=== PATIENT | female | born 1990 | race Caucasian/White ===

== ENCOUNTER 2016-06-29 10:46 | Emergency (ER) | payer OTHER ==
[~2016-06-29] VITALS: Ht 180.3 cm; Wt 75.5 kg
[2016-06-29] MEDS ORDERED: INDOCIN50 MG PO (12:46)
[2016-06-29] MEDS ORDERED: VALIUM5 MG PO (12:46)
[2016-06-29 13:30] VITALS: BP 118/71
== END 2016-06-29 13:31 | disposition home or self-care (01) ==
LOC: EME 10:46
DX: S16.1XXA Strain of muscle, fascia and tendon at neck level, initial encounter (principal); S29.012A Strain of muscle and tendon of back wall of thorax, initial encounter; R51 Headache; V44.5XXA Car driver injured in collision with heavy transport vehicle or bus in traffic accident, initial encounter; Y92.411 Interstate highway as the place of occurrence of the external cause
CPT/HCPCS: 72040; 99281; 99284